=== PATIENT | male | born 1985 | race Caucasian/White ===

== ENCOUNTER 2018-09-27 23:59 | Emergency (ER) | payer SELFPAY ==
[2018-09-28 00:43] VITALS: RESP 18
[2018-09-28] MEDS ORDERED: Sodium Chloride 0.9% 1,000 ML IV STA (00:49)
--- NOTE | 2018-09-28 01:16 | ED PDOC ---
HPI: Psych/Substance Abuse Time Seen by Provider: 09/28/18 00:31 Chief Complaint (Nursing): GI Problem Chief Complaint (Provider): GI Problem ED Caveat: Intoxicated History Per: EMS, Family History/Exam Limitations: intoxication Additional Complaint(s): Kaden Elizondo is a 33 year old male with past medical history of HIV and depression, who presents to the emergency department accompanied by EMS for alcohol intoxication. Patient's history was obtained by EMS and family member due to patient's intoxicated state. As per history from EMS and family, patient was excessively drinking today and started to vomit, prompting them to call 911. Patient has no reports of trauma and he states that he does take medication for his HIV. PMD: Non [facility] provider Past Medical History Reviewed: Historical Data, Nursing Documentation, Vital Signs Vital Signs: Last Vital Signs Temp 98.0 F 09/28/18 00:41 Pulse 83 09/28/18 00:41 Resp 18 09/28/18 00:41 BP 138/100 H 09/28/18 00:41 Pulse Ox 99 09/28/18 00:41 - Medical History PMH: Depression, HIV - Surgical History Surgical History: Appendectomy - Family History Family History: States: Unknown Family Hx - Allergies Allergies/Adverse Reactions: Allergies Allergy/AdvReac Type Severity Reaction Status Date / Time No Known Allergies Allergy Verified 09/28/18 00:47 Review of Systems ROS Statement: Except As Marked, All Systems Reviewed And Found Negative Review Of Systems: ROS cannot be obtained secondary to pt's inabilty to answer questions. Gastrointestinal: Positive for: Vomiting Physical Exam - Reviewed Nursing Documentation Reviewed: Yes Vital Signs Reviewed: Yes - Physical Exam Appears: Positive for: Uncomfortable Head Exam: Positive for: ATRAUMATIC Eye Exam: Positive for: Other (circular movements intact; pupils are sluggish but equal and reactive ) Cardiovascular/Chest: Positive for: Regular Rate, Rhythm. Negative for: Murmur Respiratory: Positive for: Normal Breath Sounds. Negative for: Respiratory Distress Gastrointestinal/Abdominal: Positive for: Normal Exam, Soft. Negative for: Tenderness Extremity: Positive for: Normal ROM Neurologic/Psych: Positive for: Alert (awake), Gait (unsteady), Other (slurred speech, confused) - Laboratory Results Result Diagrams: 09/28/18 01:40 09/28/18 01:40 - ECG O2 Sat by Pulse Oximetry: 99 (RA) Pulse Ox Interpretation: Normal - Progress Re-evaluation Time: :30 Condition: Re-examined, Improved Medical Decision Making Medical Decision Making: Time: 48 Impression: alcohol intoxication and vomiting Plan: --Alcohol serum --BMP --CBC with differential --Sodium chloride 1,000 ml --Zofran 4 mg IVP --Saline lock Scribe Attestation: Documented by Lev Felder, acting as a scribe for Nadir Real MD. Provider Scribe Attestation: All medical record entries made by the Scribe were at my direction and personally dictated by me. I have reviewed the chart and agree that the record accurately reflects my personal performance of the history, physical exam, medical decision making, and the department course for this patient. I have also personally directed, reviewed, and agree with the discharge instructions and disposition. Disposition - Clinical Impression Clinical Impression: Vomiting, Alcohol intoxication - Patient ED Disposition Is Patient to be Admitted: No Doctor Will See Patient In The: Office Counseled Patient/Family Regarding: Studies Performed, Diagnosis, Need For Followup - Disposition Referrals: LTAC[facility] within [facility] [Outside] Disposition: Routine/Home Disposition Time: 05:30 Condition: GOOD Additional Instructions: KADEN ELIZONDO, thank you for letting us take care of you today. Your provider was Nadir Real MD and you were treated for ETOH. The emergency medical care you received today was directed at your acute symptoms. If you were prescribed any medication, please fill it and take as directed. It may take several days for your symptoms to resolve. Return to the Emergency Department if your symptoms worsen, do not improve, or if you have any other problems. Please contact your doctor or call one of the physicians/clinics you have been referred to that are listed on the Patient Visit Information form that is included in your discharge packet. Bring any paperwork you were given at discharge with you along with any medications you are taking to your follow up visit. Our treatment cannot replace ongoing medical care by a primary care provider outside of the emergency department. Thank you for allowing the [facility] team to be part of your care today. If you had an X-Ray or CT scan: A Radiologist will review the ED reading if any change in treatment is needed we will contact you. If you had a blood, urine, or wound culture: It will take several days for the results, if any change in treatment is needed we will contact you. If you had an STI test: It will take 48 hours for the results. Please call after 1 week if you have not heard back. Instructions: Nausea and Vomiting, Adult (DC), Alcohol Poisoning (DC) Print Language: [id number]
[2018-09-28 01:48] LABS: BASO % 0.5 % (0.0-2.0); EOS # 0.3 K/uL (0.0-0.7); EOS % 3.7 % (0.0-4.0); HEMOGLOBIN 12.7 g/dL (12.0-18.0); LYMPH # 2.4 K/uL (1.0-4.3); LYMPH % 28.1 % (20.0-40.0); MEAN CELL VOLUME 90.6 fl (80.0-94.0); MEAN CORPUSCULAR HEMOGLOBIN 30.3 pg (27.0-31.0); MEAN CORPUSCULAR HGB CONC 33.4 g/dL (33.0-37.0); MEAN PLATELET VOLUME 9.3 fl (7.2-11.7); MONO # 0.7 K/uL (0.0-0.8); MONO % 8.8 % (0.0-10.0); NEUT # 4.9 K/uL (1.8-7.0); NEUT % 58.9 % (50.0-75.0); RBC 4.18 Mil/uL (4.40-5.90); RED CELL DISTRIBUTION WIDTH 13.8 % (11.5-14.5); WHITE BLOOD COUNT 8.4 K/uL (4.8-10.8)
[2018-09-28 01:56] LABS: BLOOD UREA NITROGEN 13 mg/dl (9-20); CALCIUM 9.2 mg/dL (8.4-10.2); GFR NON-AFRICAN AMERICAN > 60
[2018-09-28] MEDS ORDERED: Potassium Chloride 20 mEq ER Tab PO ONE ×2 (03:34→05:56)
[2018-09-28 05:45] VITALS: BP 103/56; PULSE 80; TEMP 97.5
[2018-09-28 13:38] VITALS: O2SAT 99
== END 2018-09-28 06:07 | disposition home or self-care (01) ==
LOC: H.ER 23:59
DX: F10.129 Alcohol abuse with intoxication, unspecified (principal); R11.10 Vomiting, unspecified; F32.9 Major depressive disorder, single episode, unspecified
CPT/HCPCS: 80048; 82948; 85025; 96374; 99284; G0480; J2405; J7030